=== PATIENT | male | born 1960 | race Caucasian/White ===

== ENCOUNTER 2017-03-25 07:35 | Emergency (ER) | payer OTHER ==
[~2017-03-25] VITALS: Ht 182.9 cm; Wt 79.0 kg
[2017-03-25 07:51] VITALS: BP 157/96; PULSE 68; RESP 16; TEMP 98.2; O2SAT 99
[2017-03-25] MEDS ORDERED: SODIUM CHLORIDE 0.9% FLUSH 10 ML FLUSH IVF PRN (08:15)
[2017-03-25] MEDS ORDERED: MECLIZINE HCL 25 MG TAB PO ONE (08:15)
[2017-03-25] MEDS ORDERED: SODIUM CHLORID 0.9% 500 ML INJ 500 ML IV ONE (08:15)
--- NOTE | 2017-03-25 08:16 | PD ---
HPI Chief Complaint: Dizziness Time Seen by Provider: 07:46 Travel History International Travel<30 days: No Contact w/Intl Traveler<30days: No Traveled to known affect area: No History of Present Illness HPI Patient is a 57-year-old male presents emergency department for evaluation of dizziness. He has a history of coronary artery bypass grafting. States this was years ago. He states that over the past week she's been moving to the area from out of town and has been feeling vaguely weak but is also been having some dizzy spells particularly when he moves his head to the left, he also noticed this yesterday when he rolled over in bed. States he feels like the room is spinning. Denies a history of chest pain or feeling like he is going to pass out. This morning in the shower the patient became quite dizzy normocephalic and his decided to bring him in emerged permit for evaluation. He also endorses a mild frontal headache. Endorses some mild nausea without vomiting. Denies any chest pain shortness of breath abdominal pain focalized weakness visual difficulty. PFSH Past Medical History Cardiovascular Problems: Yes High Cholesterol: Yes Coronary Artery Disease: Yes Hypertension: Yes Past Surgical History Coronary Artery Bypass Graft: Yes Coronary Stent: Yes Social History Alcohol Use: No Tobacco Use: No Substance Use: No Allergies-Medications (Allergen,Severity, Reaction): Coded Allergies: No Known Allergies (Unverified , 03/25/17) Reported Meds & Prescriptions Reported Meds & Active Scripts Active Meclizine (Meclizine HCl) 25 Mg Tab 25 Mg PO TID PRN Review of Systems Except as stated in HPI: all other systems reviewed are Neg Physical Exam Narrative GENERAL: Well-developed well-nourished no obvious distress. SKIN: Focused skin assessment warm/dry. No rash no wound HEAD: Atraumatic. Normocephalic. EYES: Pupils equal and round. No scleral icterus. No injection or drainage. ENT: No nasal bleeding or discharge. Mucous membranes pink and moist. NECK: Trachea midline. No JVD. CARDIOVASCULAR: Regular rate and rhythm. No murmur appreciated. 2+ bilateral equal pulses in all 4 extremities, well-healed sternotomy scar. RESPIRATORY: No accessory muscle use. Clear to auscultation. Breath sounds equal bilaterally. GASTROINTESTINAL: Abdomen soft, non-tender, nondistended. Hepatic and splenic margins not palpable. MUSCULOSKELETAL: No obvious deformities. No clubbing. No cyanosis. No edema. NEUROLOGICAL: Awake and alert. Cranial nerves II through XII are grossly intact and nonfocal, 5 out of 5 strength in all 4 extremities, cerebellar testing with [id number] and heel horta testing is negative. Patient relates with an even narrow-based gait, Jeni-Hallpike is deferred. PSYCHIATRIC: Appropriate mood and affect; insight and judgment normal. Data Data Last Documented VS Vital Signs Date Time Temp Pulse Resp B/P Pulse Ox O2 Delivery O2 Flow Rate FiO2 03/25/17 08:59 66 16 147/92 100 03/25/17 07:57 Room Air 03/25/17 07:51 98.2 Orders Electrocardiogram (03/25/17 ) Complete Blood Count With Diff (03/25/17 08:15) Comprehensive Metabolic Panel (03/25/17 08:15) Ckmb (Isoenzyme) Profile (03/25/17 08:15) Troponin I (03/25/17 08:15) Ct Brain W/O Iv Contrast(Rout) (03/25/17 08:15) Ecg Monitoring (03/25/17 08:15) Iv Access Insert/Monitor (03/25/17 08:15) Oximetry (03/25/17 08:15) Meclizine (Antivert) (03/25/17 08:15) Sodium Chloride 0.9% Flush (Ns Flush) (03/25/17 08:15) Sodium Chlorid 0.9% 500 Ml Inj (Ns 500 M (03/25/17 08:15) CKMB (03/25/17 08:20) CKMB% (03/25/17 08:20) Labs Laboratory Tests Test 03/25/17 08:20 White Blood Count 5.1 TH/MM3 Red Blood Count 4.86 MIL/MM3 Hemoglobin 14.9 GM/DL Hematocrit 43.3 % Mean Corpuscular Volume 89.0 FL Mean Corpuscular Hemoglobin 30.7 PG Mean Corpuscular Hemoglobin 34.5 % Concent Red Cell Distribution Width 12.6 % Platelet Count 166 TH/MM3 Mean Platelet Volume 7.7 FL Neutrophils (%) (Auto) 71.2 % Lymphocytes (%) (Auto) 20.9 % Monocytes (%) (Auto) 6.7 % Eosinophils (%) (Auto) 0.8 % Basophils (%) (Auto) 0.4 % Neutrophils # (Auto) 3.7 TH/MM3 Lymphocytes # (Auto) 1.1 TH/MM3 Monocytes # (Auto) 0.3 TH/MM3 Eosinophils # (Auto) 0.0 TH/MM3 Basophils # (Auto) 0.0 TH/MM3 CBC Comment DIFF FINAL Differential Comment Sodium Level 140 MEQ/L Potassium Level 4.0 MEQ/L Chloride Level 107 MEQ/L Carbon Dioxide Level 25.8 MEQ/L Anion Gap 7 MEQ/L Blood Urea Nitrogen 20 MG/DL Creatinine 0.90 MG/DL Estimat Glomerular Filtration 87 ML/MIN Rate Random Glucose 129 MG/DL Calcium Level 8.6 MG/DL Total Bilirubin 0.9 MG/DL Aspartate Amino Transf 23 U/L (AST/SGOT) Alanine Aminotransferase 29 U/L (ALT/SGPT) Alkaline Phosphatase 41 U/L Total Creatine Kinase 340 U/L Creatine Kinase MB 7.7 NG/ML Creatine Kinase MB % 2.3 % Troponin I LESS THAN 0.02 NG/ML Total Protein 7.2 GM/DL Albumin 3.9 GM/DL [facility] Medical Decision Making Medical Screen Exam Complete: Yes Emergency Medical Condition: Yes Interpretation(s) EKG shows sinus bradycardia rate of 58, intervals otherwise within normal limits , concerning ST segment changes, interpretation of EKG somewhat limited by motion artifact, this is a normal EKG except for rate. Differential Diagnosis BPPV, acute CVA highly unlikely, ACS highly unlikely, electro-N O'Eliu, dehydration, rhabdomyolysis. Narrative Course Patient roomed in emergency department, initial workup including troponin CT head EKG negative. The patient does have a minimal elevation in CK which I think goes along with him being outside moving. He appears well. Clinically on his history given the onset of symptoms whenever he moves any comparison symptoms to spinning around in a grindstone as a child to think vertigo is high on the differential. ACS an acute stroke were considered but are very very low on the differential. This was all discussed with the patient and I suggested that he could go home with a trial of meclizine at this time and [facility] He is amenable to this. Discussed signs symptoms that should prompt emergent return to the ER meclizine prescribed. He stable for discharge. Diagnosis Primary Impression: Vertigo Additional Instructions: [facility] Med/Other Pt SpecificInfo: Prescription(s) given Scripts Meclizine 25 Mg Tab25 Mg PO TID PRN (VERTIGO) #30 TAB Ref 0 Prov:Hollis Steven MD 03/25/17 Disposition: 01 DISCHARGE HOME Condition: Stable Hollis Steven MD Mar 25, 2017 08:16
[2017-03-25 08:33] LABS: AUTOMATED NEUTROPHIL # 3.7 TH/MM3 (1.8-7.7); BASOPHIL % 0.4 % (0.0-2.0); EOSINOPHIL % 0.8 % (0.0-4.0); HEMATOCRIT 43.3 % (39.0-51.0); HEMO FLAGS DIFF FINAL; LYMPH % 20.9 % (9.0-44.0); LYMPHOCYTE # 1.1 TH/MM3 (1.0-4.8); MEAN CORPUSCULAR HEMOGLOBIN 30.7 PG (27.0-34.0); MEAN CORPUSCULAR HGB CONC 34.5 % (32.0-36.0); MONO % 6.7 % (0.0-8.0); NEUT % 71.2 % (16.0-70.0); PLATELET COUNT 166 TH/MM3 (150-450); RED BLOOD COUNT 4.86 MIL/MM3 (4.50-5.90); RED CELL DISTRIBUTION WIDTH 12.6 % (11.6-17.2); WHITE BLOOD COUNT 5.1 TH/MM3 (4.0-11.0)
[2017-03-25 08:39] LABS: CHLORIDE 107 MEQ/L (98-107); SODIUM (NA) 140 MEQ/L (136-145)
--- NOTE | 2017-03-25 08:42 | RADRPT ---
EXAM DATE/TIME: 03/25/2017 08:20 [place] COMPARISON: No previous studies available for comparison. INDICATIONS : Dizziness, nausea, chills, high blood pressure for 2 days. RADIATION DOSE: 63.79 CTDIvol (mGy) MEDICAL HISTORY : Cardiovascular disease. Hypercholesterolemia. Hypertension. SURGICAL HISTORY : Knee surgery ENCOUNTER: Initial ACUITY: 2 days PAIN SCALE: 0/10 LOCATION: cranial TECHNIQUE: Multiple contiguous axial images were obtained of the head. Using automated exposure control and adj ustment of the mA and/or kV according to patient size, radiation dose was kept as low as reasonably a chievable to obtain optimal diagnostic quality images. DICOM format image data is available electro nically for review and comparison. FINDINGS: CEREBRUM: The ventricles are normal for age. No evidence of midline shift, mass lesion, hemorrhage or acute in farction. No extra-axial fluid collections are seen. POSTERIOR FOSSA: The cerebellum and brainstem are intact. The 4th ventricle is midline. The cerebellopontine angle i s unremarkable. EXTRACRANIAL: The visualized portion of the orbits is intact. SKULL: The calvaria is intact. No evidence of skull fracture. CONCLUSION: No acute disease. Ba Watkins MD on March 25, 2017 at 8:40 Board Certified Radiologist. This report was verified electronically.
[2017-03-25 08:43] LABS: ANION GAP 7 MEQ/L (5-15); BICARBONATE 25.8 MEQ/L (21.0-32.0); BLOOD UREA NITROGEN 20 MG/DL (7-18)
[2017-03-25 08:46] LABS: ALT (GPT) 29 U/L (12-78); AST (GOT) 23 U/L (15-37); GLOMERULAR FILTRATION RATE 87 ML/MIN (>89)
[2017-03-25 08:48] LABS: TOTAL BILIRUBIN ADULT 0.9 MG/DL (0.2-1.0)
[2017-03-25 08:49] LABS: ALKALINE PHOSPHATASE 41 U/L (45-117); CREATINE KINASE 340 U/L (39-308)
[2017-03-25 08:59] VITALS: BP 147/92; PULSE 66; RESP 16; O2SAT 100
[2017-03-25 09:01] LABS: CKMB 7.7 NG/ML (0.5-3.6)
[2017-03-25] MEDS ORDERED: MECL-62 PO (09:06)
--- NOTE | 2017-03-25 12:51 | EKG ---
Date Performed: 03/25/2017 Time Performed: 07:43:50 PTAGE: 57 years EKG: SINUS BRADYCARDIA BORDERLINE ECG NO PREVIOUS TRACING DOCTOR: Fred Murphy Interpretating Date/Time 03/25/2017 12:44:37
== END 2017-03-25 09:19 | disposition home or self-care (01) ==
LOC: PHED 07:35
DX: R42 Dizziness and giddiness (principal); R53.1 Weakness; R51 Headache; R11.0 Nausea; R00.1 Bradycardia, unspecified; I10 Essential (primary) hypertension; E78.00 Pure hypercholesterolemia, unspecified; Z95.1 Presence of aortocoronary bypass graft; Z86.79 Personal history of other diseases of the circulatory system
CPT/HCPCS: 70450; 80053; 82550; 82552; 84484; 85025; 93005; 96360; 99285; J7040

== ENCOUNTER 2017-10-06 10:53 | Emergency (ER) | payer SELFPAY ==
[~2017-10-06] VITALS: Ht 182.9 cm; Wt 84.0 kg
[~2017-10-06 10:53] MED LIST: MECL-62 PO
[2017-10-06 11:13] VITALS: BP 203/98; PULSE 63; RESP 18; TEMP 97.6; O2SAT 99
[2017-10-06 11:44] VITALS: BP_SYST 172; BP_SYST 203; BP_DIAS 96; BP_DIAS 98; PULSE 63; RESP 18; O2SAT 99
[2017-10-06] MEDS ORDERED: PRAV40TA2 PO (11:56)
[2017-10-06] MEDS ORDERED: LOSA100T PO (11:56)
[2017-10-06] MEDS ORDERED: ASPI81TA81 PO (11:56)
[2017-10-06] MEDS ORDERED: HYDR25TA5 PO (12:09)
--- NOTE | 2017-10-06 12:09 | PD ---
HPI Chief Complaint: Hypertension Time Seen by Provider: 11:49 Travel History International Travel<30 days: No Contact w/Intl Traveler<30days: No Traveled to known affect area: No History of Present Illness HPI This is a 57-year-old male who presents to the emergency department with high blood pressure that's been going on for 1 month. He says for one month he's been feeling a little bit lightheaded, dizzy and off, constant, moderate severity, associated with some weakness. He said he checked his blood pressure this morning and it was in the 170s systolic so he came to the emergency department. He says it's been running high intermittently throughout the month. He takes losartan 100 mg a day but that's the only blood pressure medication he is on. He does have a history of a CABG and a drug-eluting stent. He denies any chest pain or shortness of breath and denies any acute headache or neurologic symptoms. He follows at the [facility] Past Medical History Cardiovascular Problems: Yes High Cholesterol: Yes Coronary Artery Disease: Yes Diminished Hearing: No Hypertension: Yes Medical other: Yes (bells palsy) Immunizations Current: Yes Tetanus Vaccination: < 5 Years Influenza Vaccination: No Past Surgical History Coronary Artery Bypass Graft: Yes (triple bypass) Coronary Stent: Yes (x2) Social History Alcohol Use: Yes (occ) Tobacco Use: No Substance Use: Yes (pot) Allergies-Medications (Allergen,Severity, Reaction): Coded Allergies: No Known Allergies (Unverified Adverse Reaction, Unknown, 10/06/17) Reported Meds & Prescriptions Reported Meds & Active Scripts Active Hydrochlorothiazide 25 Mg Tab 25 Mg PO DAILY Reported Aspir-81 (Aspirin) 81 Mg Tabdr 1 Tab PO DAILY Pravastatin 40 Mg Tab 40 Mg PO DAILY Losartan (Losartan Potassium) 100 Mg Tab 100 Mg PO DAILY Review of Systems Except as stated in HPI: all other systems reviewed are Neg Physical Exam Narrative GENERAL:Well appearing, no acute distress SKIN: Focused skin assessment warm and dry. HEAD: Atraumatic. Normocephalic. EYES: Pupils equal and round. No injection or drainage. ENT: Moist mucous membranes NECK: Trachea midline. CARDIOVASCULAR: Regular rate and rhythm. No murmur appreciated. RESPIRATORY: Clear to auscultation. Breath sounds equal bilaterally. GASTROINTESTINAL: Abdomen soft, non-tender, nondistended. MUSCULOSKELETAL: No obvious deformities. NEUROLOGICAL: Awake and alert. No obvious cranial nerve deficits. Moving all extremities. PSYCHIATRIC: Appropriate mood and affect; insight and judgment normal. Data Data Last Documented VS Vital Signs Date Time Temp Pulse Resp B/P (MAP) Pulse Ox O2 Delivery O2 Flow Rate FiO2 10/06/17 11:44 63 18 172/96 (121) 99 Room Air 203/98 (133) 10/06/17 11:13 97.6 Orders Orders Electrocardiogram (10/06/17 ) MDM Medical Decision Making Medical Screen Exam Complete: Yes Emergency Medical Condition: Yes Interpretation(s) Afebrile, hypertensive Differential Diagnosis Hypertensive urgency, hypertensive emergency, hypertension Narrative Course This is a 57-year-old male who presents to the emergency department with blood pressure that's been trending high for the past month. His only blood pressure medication is losartan 100 mg per day. He denies any chest pain, shortness of breath or neurologic symptoms to suggest hypertensive emergency. I think the patient can started on HCTZ in addition to his losartan. I don't think he requires any acute treatment in the emergency department as he is asymptomatic. Patient will be discharged home with a prescription and he was asked to follow -up with the [facility]. EKG was obtained which is unchanged from prior. Diagnosis Primary Impression: Hypertension Qualified Codes: I10 - Essential (primary) hypertension Patient Instructions: General Instructions Additional Instructions: If you develop severe chest pain, shortness of breath, sweating, lightheadedness , dizziness or difficulty breathing return to the emergency department immediately. Followup with your primary care physician in 2-3 days if your symptoms are not resolved. Med/Other Pt SpecificInfo: Prescription(s) given Scripts Hydrochlorothiazide (Hydrochlorothiazide) 25 Mg Tab 25 MG PO DAILY, #30 TAB 0 Refills Prov: Frances Reyes MD 10/06/17 Disposition: 01 DISCHARGE HOME Condition: Stable Frances Reyes MD Oct 06, 2017 12:09
[2017-10-06 12:45] VITALS: BP 166/90
--- NOTE | 2017-10-07 13:25 | EKG ---
Date Performed: 10/06/2017 Time Performed: 12:23:26 PTAGE: 57 years EKG: Sinus rhythm Since the prior tracing, there has been no significant change NORMAL ECG PREVIOUS TRACING : 03/25/2017 @ 0743 DOCTOR: Roel Rain Interpretating Date/Time 10/07/2017 13:23:29
== END 2017-10-06 12:46 | disposition home or self-care (01) ==
LOC: PHED 10:53
DX: I10 Essential (primary) hypertension (principal); E78.00 Pure hypercholesterolemia, unspecified; I25.10 Atherosclerotic heart disease of native coronary artery without angina pectoris; Z95.1 Presence of aortocoronary bypass graft; Z95.5 Presence of coronary angioplasty implant and graft; Z79.82 Long term (current) use of aspirin; Z79.899 Other long term (current) drug therapy
CPT/HCPCS: 93005; 99283